=== PATIENT | male | born 1995 ===

== ENCOUNTER 2017-12-01 13:35 | Emergency (ER) | payer MEDICAID ==
[2017-12-01 13:53] VITALS: BP 149/90; PULSE 82; RESP 18; TEMP 98.8; O2SAT 98
--- NOTE | 2017-12-01 14:41 | C.PDOC ---
History Of Present Illness 22 y/o male reports smoking marijuana and drinking alcohol last night and sts he did not feel like himself; pt felt 'out of control of his body' and not how he usually feels when smoking. pt sts he feels fine today but concerned something was put in his marijuana. no physical complaints today. Time Seen by Provider: 12/01/17 14:00 Chief Complaint (Nursing): Medical Clearance History Per: Patient History/Exam Limitations: no limitations Onset/Duration Of Symptoms: Days (1) Current Symptoms Are (Timing): Gone Past Medical History Reviewed: Historical Data, Nursing Documentation, Vital Signs Vital Signs: Last Vital Signs Temp 98.8 F 12/01/17 13:49 Pulse 82 12/01/17 13:49 Resp 18 12/01/17 13:49 BP 149/90 12/01/17 13:49 Pulse Ox 98 12/01/17 15:28 - Medical History PMH: No Chronic Diseases Family History: States: Unknown Family Hx - Social History Hx Alcohol Use: Yes Hx Substance Use: Yes - Immunization History Hx Tetanus Toxoid Vaccination: Yes Hx Influenza Vaccination: Yes Hx Pneumococcal Vaccination: Yes Review Of Systems Constitutional: Negative for: Fever, Chills Cardiovascular: Negative for: Chest Pain Respiratory: Negative for: Cough, Shortness of Breath Gastrointestinal: Negative for: Abdominal Pain Physical Exam - Physical Exam Appears: Non-toxic, No Acute Distress, Other (obese) Skin: Warm, Dry Head: Atraumatic, Normacephalic Eye(s): bilateral: Normal Inspection, PERRL Nose: No Discharge Oral Mucosa: Moist Neck: Supple Cardiovascular: Rhythm Regular, No Murmur Respiratory: No Decreased Breath Sounds, No Wheezing Gastrointestinal/Abdominal: Soft, No Tenderness Neurological/Psych: Oriented x3, Normal Speech, Normal Cognition, Normal Motor, Normal Sensation ED Course And Treatment O2 Sat by Pulse Oximetry: 98 Medical Decision Making Medical Decision Making: pt felt weird after smoking pot last night- no complaints at this time; concerned there may have been something added to marijuana or alcohol. discussed with patient that drug screen only covers certain drugs so test may not be diagnostic but pt would like it anyway. [id number] spoke to patient. results of test discussed. pt advised to stop using marijuana. pt agrees. Disposition Counseled Patient/Family Regarding: Studies Performed, Diagnosis - Disposition Referrals: [facility] [Outside] Disposition: HOME/ ROUTINE Disposition Time: 14:44 Condition: GOOD Additional Instructions: Please stop smoking marijuana.Follow up in medical clinic. Instructions: Marijuana Use and Addiction (DC) Forms: [facility] ([place]), General Discharge Instructions - Clinical Impression Clinical Impression: Medical assessment
[2017-12-01 15:10] LABS: BARBITURATES, UR NEGATIVE (NEGATIVE); BENZODIAZEPINES, UR NEGATIVE (NEGATIVE); OPIATES, UR NEGATIVE (NEGATIVE); PHENCYCLIDINE, UR NEGATIVE (NEGATIVE)
== END 2017-12-01 14:51 | disposition home or self-care (01) ==
LOC: C.ER 13:35
DX: Z00.00 Encounter for general adult medical examination without abnormal findings (principal)